=== PATIENT | female | born 1975 | race Asian ===

== ENCOUNTER 2017-06-16 14:38 | Emergency (ER) | payer OTHER ==
[~2017-06-16 14:38] MED LIST: ATIVAN0.5 M1 PO; PRI20 PO
[2017-06-16 16:57] LABS: BASOPHIL % 0.3 % (0-2); PLATELET COUNT 269 x10^3mcL (130-400); RED CELL DISTRIBUTION WIDTH 13.1 % (11.5-14.5)
[2017-06-16 17:01] LABS: CALCIUM 9.3 mg/dL (8.5-10.1); CARBON DIOXIDE 28.1 mmol/L (21-32); CHLORIDE SERUM 102 mmol/L (98-107); CREATININE SERUM 0.7 mg/dL (0.6-1.0); GFR1 > 60 mL/min; GLUCOSE SERUM 99 mg/dL (74-106); POTASSIUM SERUM 3.7 mmol/L (3.5-5.1); SODIUM SERUM 138 mmol/L (136-145)
[2017-06-16 17:13] LABS: ALBUMIN 4.1 g/dL (3.4-5.0); ALKALINE PHOSPHATASE 78 U/L (46-116); ALT/SGPT 54 U/L (14-59); AST/SGOT 32 U/L (15-37); HDL CHOLESTEROL 39 mg/dL (40-60); MAGNESIUM 2.3 mg/dL (1.8-2.4); T4(THYROXINE) 7.9 ug/dL (4.7-13.3)
[2017-06-16 17:14] LABS: CHOLESTEROL 250 mg/dL (<200); TOTAL PROTEIN, SERUM 8.6 g/dL (6.4-8.2)
[2017-06-16 18:24] VITALS: BP 135/90
== END 2017-06-16 18:24 | disposition home or self-care (01) ==
LOC: ED 14:38
PROVIDERS: Emergency Medicine
DX: I10 Essential (primary) hypertension (principal); E78.00 Pure hypercholesterolemia, unspecified
CPT/HCPCS: 83880; Q0092

== ENCOUNTER 2017-06-21 08:14 | Emergency (ER) | payer OTHER ==
[2017-06-21 09:29] LABS: BASOPHIL % 0.5 % (0-2); PLATELET COUNT 250 x10^3mcL (130-400); RED CELL DISTRIBUTION WIDTH 12.8 % (11.5-14.5)
[2017-06-21 09:30] LABS: CALCIUM 8.7 mg/dL (8.5-10.1); CARBON DIOXIDE 31.4 mmol/L (21-32); CHLORIDE SERUM 103 mmol/L (98-107); CREATININE SERUM 0.7 mg/dL (0.6-1.0); GFR1 > 60 mL/min; GLUCOSE SERUM 92 mg/dL (74-106); POTASSIUM SERUM 3.8 mmol/L (3.5-5.1); SODIUM SERUM 139 mmol/L (136-145)
[2017-06-21 09:33] LABS: UA SPECIFIC GRAVITY 1.015 (1.005-1.035); microscopic required? YES; urine erythrocyte 1+ (NEGATIVE)
[2017-06-21 09:35] LABS: ALBUMIN 3.5 g/dL (3.4-5.0); ALKALINE PHOSPHATASE 68 U/L (46-116); ALT/SGPT 52 U/L (14-59); AMYLASE 57 U/L (25-115); AST/SGOT 32 U/L (15-37); BILIRUBIN TOTAL 1.19 mg/dL (0.20-1.00); CHOLESTEROL 171 mg/dL (<200); HDL CHOLESTEROL 38 mg/dL (40-60); LIPASE 152 IU/L (73-393); TOTAL PROTEIN, SERUM 7.6 g/dL (6.4-8.2)
[2017-06-21 11:56] VITALS: BP 124/86
== END 2017-06-21 11:56 | disposition home or self-care (01) ==
LOC: ED 08:14
PROVIDERS: Emergency Medicine
DX: K76.0 Fatty (change of) liver, not elsewhere classified (principal); N39.0 Urinary tract infection, site not specified; E78.00 Pure hypercholesterolemia, unspecified; F41.9 Anxiety disorder, unspecified
CPT/HCPCS: J1885; J3490; J7030; Q0092